=== PATIENT | male | born 1985 | race Two or more races ===

== ENCOUNTER 2017-07-30 14:47 | Emergency (ER) | payer OTHER ==
[~2017-07-30] VITALS: Ht 167.6 cm; Wt 70.6 kg
[2017-07-30 15:28] VITALS: BP 128/86
[2017-07-30] MEDS ORDERED: LIDOCAINE-MPF 2% ,5ML ONE (15:41)
[2017-07-30] MEDS ORDERED: BUPIVACAINE 0.25% ONE (15:41)
[2017-07-30] MEDS ORDERED: BUPIVACAINE/PF-EPI 0.25% 1:200K SQ ONE (16:00)
[2017-07-30] MEDS ORDERED: LIDOCAINE 2%, 20ML SQ ONE (16:00)
[2017-07-30] MEDS ORDERED: LISD20CA4 PO (16:06)
[2017-07-30] MEDS ORDERED: BACITRACIN ZINC OINT 500U/GM, 0.9 GM ONE (16:50)
[2017-07-30] MEDS ORDERED: KETOROLAC 30 MG/1 ML ONE (16:50)
[2017-07-30] MEDS ORDERED: KETOROLAC 30 MG/1 ML IM ONE (17:00)
== END 2017-07-30 17:15 | disposition home or self-care (01) ==
LOC: ED 17:09
DX: S61.411A Laceration without foreign body of right hand, initial encounter (principal); X58.XXXA Exposure to other specified factors, initial encounter; Y93.89 Activity, other specified; Y99.8 Other external cause status; Y92.099 Unspecified place in other non-institutional residence as the place of occurrence of the external cause
CPT/HCPCS: 12001; 73130; 96372; 99284; J1885

== ENCOUNTER 2018-09-15 02:39 | Emergency (ER) | payer OTHER ==
[~2018-09-15] VITALS: Ht 167.6 cm; Wt 74.8 kg
[2018-09-15 04:07] VITALS: BP 130/70
== END 2018-09-15 04:09 | disposition home or self-care (01) ==
LOC: ED 04:00
DX: R11.2 Nausea with vomiting, unspecified (principal); L50.0 Allergic urticaria
CPT/HCPCS: 36415; 80053; 83690; 85025; 99284; J7512; Q0163